=== PATIENT | female | born 1955 | race African-American/Black ===

== ENCOUNTER 2017-11-01 12:04 | Emergency (ER) | payer MEDICAID ==
[~2017-11-01] VITALS: Ht 162.6 cm; Wt 72.6 kg
[~2017-11-01 12:04] MED LIST: ACETAMINOPHEN500 M3 ORAL
[2017-11-01 12:24] VITALS: BP 186/94
[2017-11-01] MEDS ORDERED: TYLENOL EXTRA500 MG ORAL (13:27)
[2017-11-01] MEDS ORDERED: ZOFRAN4 M3 ORAL (13:27)
[2017-11-01 14:00] VITALS: BP 186/94
--- NOTE | 2017-11-03 23:02 | Emergency Room Report ---
History of Present Illness General Chief Complaint: Nausea, Vomiting, and Diarrhea Source: Patient Present Illness HPI The patient is a 61-year-old female who denies medical history presenting for 2 days of nausea, vomiting, and diarrhea. She admits to recent sick contact with the same symptoms. She denies any recent travel. She has abdominal pain described as a 5/10 dull ache to the mid upper abdomen. Does not radiate. She denies any other symptoms including chest pain, shortness of breath, melena, hematochezia, hematemesis Allergies: Coded Allergies: No Known Allergies (Unverified , 04/10/14) Patient History Past Medical History: see triage record Pertinent Family History: none Reviewed Nursing Documentation: PMH: Agreed, PSxH: Agreed Nursing Documentation-PMH Past Medical History: No History, Except For Hx Hypertension: Yes Review of Systems All Other Systems: negative except mentioned in HPI Physical Exam Vital Signs Date Time Temp Pulse Resp B/P (MAP) Pulse Ox O2 Delivery O2 Flow Rate FiO2 11/01/17 12:15 98.4 98 18 186/94 97 Room Air Sp02 EP Interpretation: reviewed, normal General Appearance: no apparent distress, alert, GCS 15, non-toxic Head: normocephalic, atraumatic Respiratory: chest non-tender, lungs clear, normal breath sounds, speaking full sentences Cardiovascular #1: regular rate, rhythm, no edema Gastrointestinal: no mass, non-distended, tenderness - epigastric Rectal: deferred Genitourinary: normal inspection, no CVA tenderness Musculoskeletal: back normal, gait/station normal, normal range of motion, non- tender, calf tenderness Neurologic: alert, oriented x3, responsive, motor strength/tone normal, sensory intact, speech normal Psychiatric: judgement/insight normal, memory normal, mood/affect normal, no suicidal/homicidal ideation Skin: normal color, no rash, warm/dry, well hydrated Medical Decision Making PA Attestation Dr. Verma is my supervising physician. Patient management was discussed with my supervising physician Diagnostic Impression: Primary Impression: Gastroenteritis ER Course The patient is a 61-year-old female who denies medical history presenting for 2 days of nausea, vomiting, and diarrhea. Differential diagnoses considered but not limited to: Gastroenteritis, GERD, gastritis, appendicitis, pancreatitis PE: Vitals WNL. NAD. Abdomen: Normal appearance. Non distended. No ecchymosis. Increased BS. + Epigastric TTP. No McBurney point tenderness. No guarding. No CVA tenderness The patient is given Tylenol and Zofran and is feeling much better. She'll be discharged home with the same. ER precautions are given Last Vital Signs Date Time Temp Pulse Resp B/P (MAP) Pulse Ox O2 Delivery O2 Flow Rate FiO2 11/01/17 14:00 98.5 18 186/94 97 Room Air 11/01/17 12:15 98 Status: improved Disposition: HOME, SELF-CARE Condition: Improved Scripts Acetaminophen* (TYLENOL EXTRA STRENGTH*) 500 Mg Tablet 500 MG ORAL Q8H Y for Prn Headache/Temp > 101, #30 TAB 0 Refills Prov: LULU BURDEN 11/01/17 Ondansetron* (ZOFRAN*) 4 Mg Tablet 4 MG ORAL Q6H Y for Nausea & Vomiting, #15 TAB Prov: LULU BURDEN 11/01/17 Referrals: [facility],REFERRING (PCP) Patient Instructions: Viral Gastroenteritis, Adult Additional Instructions: I discussed my findings with the patient. All questions and concerns have been answered. Treatment and medication compliance have been addressed. I advised the patient that they need to follow up with PMD in 3-5 days. Return to ED if symptoms worsen, new symptoms arise, or if needed for any reason. Patient verbalized understanding of discharge instructions. LULU BURDEN Nov 03, 2017 23:01
== END 2017-11-01 14:00 | disposition home or self-care (01) ==
LOC: EMR 14:00
DX: K52.9 Noninfective gastroenteritis and colitis, unspecified (principal); I10 Essential (primary) hypertension
CPT/HCPCS: 99283

== ENCOUNTER 2019-07-14 20:47 | Inpatient (IN) | payer MEDICAID ==
[~2019-07-14] VITALS: Ht 162.6 cm; Wt 66.2 kg
[~2019-07-14 20:47] MED LIST changes: +TYLENOL EXTRA500 MG ORAL; +ZOFRAN4 M3 ORAL
[2019-07-14 21:06] VITALS: BP 203/100
--- NOTE | 2019-07-14 21:21 | Emergency Room Report ---
History of Present Illness General Chief Complaint: Nausea, Vomiting, and Diarrhea Source: Patient Present Illness HPI Patient presents with 2 days of nausea vomiting and abdominal pain. She is been able to keep anything down. She feels dehydrated at this time. She was able to move her bowels today and says that the bowel movement was normal. She denies dysuria. There is no chest pain or shortness of breath. She feels weak when she is standing. She denies having this in the past. The pain is midabdomen and constant. She states is not radiating. She rates the pain 3/10. No fevers, chills, sore throat, chest pain, palpitations, shortness of breath, joint pain, rashes, depression, anxiety, visual changes, headache. Allergies: Coded Allergies: No Known Allergies (Unverified , 04/10/14) Patient History Past Medical History: see triage record Social History: Reports: smoking, drug use - See tox screen Social History Narrative From home Last Menstrual Period: na Reviewed Nursing Documentation: PMH: Agreed; PSxH: Agreed Nursing Documentation-PMH Hx Hypertension: Yes Review of Systems All Other Systems: negative except mentioned in HPI Physical Exam Vital Signs Date Time Temp Pulse Resp B/P (MAP) Pulse Ox O2 Delivery O2 Flow Rate FiO2 07/14/19 21:00 98.8 107 14 203/104 (137) 100 07/14/19 21:06 Room Air Sp02 EP Interpretation: reviewed, normal General Appearance: well appearing, no apparent distress, GCS 15 Head: normocephalic Eyes: bilateral eye normal inspection, bilateral eye PERRL, bilateral eye EOMI ENT: moist mucus membranes Neck: supple Respiratory: lungs clear, normal breath sounds Cardiovascular #1: regular rate, rhythm Cardiovascular #2: 2+ radial (R) Gastrointestinal: normal inspection, no mass, non-distended, no rebound, guarding - Diffuse, tenderness - Diffuse Genitourinary: no CVA tenderness Musculoskeletal: back normal, normal range of motion Neurologic: alert, grossly normal, oriented - X2 Psychiatric: depressed affect Skin: no rash Medical Decision Making Diagnostic Impression: Primary Impression: Abdominal pain Qualified Codes: R10.84 - Generalized abdominal pain Additional Impressions: Intractable vomiting Qualified Codes: R11.2 - Nausea with vomiting, unspecified Urinary tract infection Qualified Codes: N39.0 - Urinary tract infection, site not specified Pericholecystic fluid Cocaine abuse Dehydration Polycythemia ER Course Patient presents with nausea and vomiting with abdominal pain. Differential includes acute myocardial infarction, pancreatitis, GERD, gastroenteritis, diverticulitis, UTI amongst others. The patient will be evaluated with EKG, chest x-ray, CT the abdomen and pelvis with contrast and labs. The patient will be treated with IV hydration, Zofran and morphine. CT concerning for cholecystitis (no stones). White count elevated. Elevated hemoglobin hematocrit. CMP elevated BUN. Urinalysis with pyuria. Tox screen positive for cocaine. Patient improved but still with some guarding. Diffuse. No rebound. She declines more pain medicine. Cefepime given for UTI and/or gall bladder inflammation. Contacted Dr. Lane and Dr. Medrano. Admit med. Laboratory Tests Test 07/14/19 21:25 07/14/19 22:25 07/14/19 23:19 White Blood Count 12.0 K/UL (4.8-10.8) H Red Blood Count 5.34 M/UL (4.20-5.40) Hemoglobin 17.2 G/DL (12.0-16.0) H Hematocrit 52.4 % (37.0-47.0) H Mean Corpuscular Volume 98 FL (80-99) Mean Corpuscular Hemoglobin 32.2 PG (27.0-31.0) H Mean Corpuscular Hemoglobin Concent 32.8 G/DL (32.0-36.0) Red Cell Distribution Width 11.4 % (11.6-14.8) L Platelet Count 265 K/UL (150-450) Mean Platelet Volume 8.9 FL (6.5-10.1) Neutrophils (%) (Auto) 88.4 % (45.0-75.0) H Lymphocytes (%) (Auto) 7.4 % (20.0-45.0) L Monocytes (%) (Auto) 3.2 % (1.0-10.0) Eosinophils (%) (Auto) 0.0 % (0.0-3.0) Basophils (%) (Auto) 1.1 % (0.0-2.0) Prothrombin Time 10.2 SEC (9.30-11.50) Prothrombin Time INR 1.0 (0.9-1.1) PTT 28 SEC (23-33) Sodium Level 136 MMOL/L (136-145) Potassium Level 3.7 MMOL/L (3.5-5.1) Chloride Level 98 MMOL/L (98-107) Carbon Dioxide Level 25 MMOL/L (21-32) Anion Gap 13 mmol/L (5-15) Blood Urea Nitrogen 19 mg/dL (7-18) H Creatinine 1.0 MG/DL (0.55-1.30) Estimate Glomerular Filtration Rate > 60 mL/min (>60) Glucose Level 176 MG/DL (74-106) H Lactic Acid Level 2.10 mmol/L (0.4-2.0) H 1.70 mmol/L (0.66-2.22) Calcium Level 10.1 MG/DL (8.5-10.1) Magnesium Level 1.8 MG/DL (1.8-2.4) Total Bilirubin 0.5 MG/DL (0.2-1.0) Aspartate Amino Transferase (AST) 16 U/L (15-37) Alanine Aminotransferase (ALT) 16 U/L (12-78) Alkaline Phosphatase 85 U/L (46-116) Troponin I 0.000 ng/mL (0.000-0.056) Total Protein 8.6 G/DL (6.4-8.2) H Albumin 3.8 G/DL (3.4-5.0) Globulin 4.8 g/dL Albumin/Globulin Ratio 0.8 (1.0-2.7) L Lipase 132 U/L (73-393) Urine Color Pale yellow Urine Appearance Clear Urine pH 7 (4.5-8.0) Urine Specific [place] 1.015 (1.005-1.035) Urine Protein 3+ (NEGATIVE) H Urine Glucose (UA) 1+ (NEGATIVE) H Urine Ketones Negative (NEGATIVE) Urine Blood 2+ (NEGATIVE) H Urine Nitrite Negative (NEGATIVE) Urine Bilirubin Negative (NEGATIVE) Urine Urobilinogen Normal MG/DL (0.0-1.0) Urine Leukocyte Esterase 2+ (NEGATIVE) H Urine RBC 2-4 /HPF (0 - 2) H Urine WBC 5-10 /HPF (0 - 2) H Urine Squamous Epithelial Cells Moderate /LPF (NONE/OCC) H Urine Bacteria Few /HPF (NONE) EKG Diagnostic Results Rate: tachycardiac Rhythm: NSR ST Segments: no acute changes Rhythm Strip Diag. Results EP Interpretation: yes Rhythm: no PVC's, no ectopy, other - Sinus tachycardia Chest X-Ray Diagnostic Results Chest X-Ray Diagnostic Results : Chest X-Ray Ordered: Yes # of Views/Limited/Complete: 1 View Indication: Other EP Interpretation: Yes Interpretation: no consolidation, no effusion, no pneumothorax Impression: No acute disease Electronically Signed by: Electronic CT/MRI/US Diagnostic Results CT/MRI/US Diagnostic Results : Imaging Test Ordered: Abdomen and pelvis Impression Gallbladder demonstrates wall thickening with isaias-cholecystic fluid. No stones. This was also seen April 102013. The rest unremarkable. Last Vital Signs Date Time Temp Pulse Resp B/P (MAP) Pulse Ox O2 Delivery O2 Flow Rate FiO2 07/15/19 04:00 97.5 70 20 212/91 (131) 97 07/15/19 02:11 Room Air Status: improved Disposition: ADMITTED INPATIENT Condition: Serious Brody Luciano MD Jul 14, 2019 21:21
[2019-07-14] MEDS ORDERED: Omnipaque-300 100ml vial INJ PRN (21:30)
[2019-07-14] MEDS ORDERED: Morphine Sulfate 2mg/ml Inj(IV/IM USE ONLY) IVP ONE (21:30)
[2019-07-14 21:48] LABS: HEMATOCRIT 52.4 % (37.0-47.0); HEMOGLOBIN 17.2 G/DL (12.0-16.0); MEAN CORPUSCULAR VOLUME 98 FL (80-99); PLATELET COUNT 265 K/UL (150-450); RED BLOOD COUNT 5.34 M/UL (4.20-5.40); RED CELL DISTRIBUTION WIDTH 11.4 % (11.6-14.8)
[2019-07-14 21:49] LABS: LYMPHOCYTES % (AUTO) 7.4 % (20.0-45.0); MONOCYTES % (AUTO) 3.2 % (1.0-10.0); NEUTROPHILS % (AUTO) 88.4 % (45.0-75.0)
[2019-07-14 21:50] LABS: BASOPHILS % (AUTO) 1.1 % (0.0-2.0)
[2019-07-14 21:56] LABS: ANION GAP 13 mmol/L (5-15); BLOOD UREA NITROGEN 19 mg/dL (7-18); CALCIUM 10.1 MG/DL (8.5-10.1); CARBON DIOXIDE 25 MMOL/L (21-32); CHLORIDE 98 MMOL/L (98-107); POTASSIUM 3.7 MMOL/L (3.5-5.1); SODIUM 136 MMOL/L (136-145)
[2019-07-14 22:01] LABS: ALANINE AMINOTRANSFERASE 16 U/L (12-78); ALBUMIN 3.8 G/DL (3.4-5.0); ALBUMIN/GLOBULIN RATIO 0.8 (1.0-2.7); ALKALINE PHOSPHATASE 85 U/L (46-116); ASPARTATE AMINO TRANSFERASE 16 U/L (15-37); BILIRUBIN,TOTAL 0.5 MG/DL (0.2-1.0)
--- NOTE | 2019-07-14 23:28 | Diagnostic Imaging Report ---
Indication: Abdominal pain Technique: Continuous helical transaxial imaging of the abdomen and pelvis was obtained from the lung bases to the pubic symphysis during intravenous contrast administration. Coronal 2-D reformats were also obtained. Study obtained in a Siemens sensation [address] Automatic Exposure Control was utilized. Total Dose length Product (DLP): 527.[address] Dose Index Volume (CTDIvol): 10.45 mGy Comparison: 04/10/2014 Findings: There is a lipoma in the posterolateral right flank measuring 4.2 x 8.2 cm. This has not changed subsequently since the last study. There is gallbladder wall thickening noted on this exam. This was also seen previously. There are bilateral renal cysts. There is no hydronephrosis. Aortoiliac calcifications are present. No evidence of appendicitis, free fluid, bowel obstruction. There are enhancing foci within the uterus likely fibroids. Degenerative changes of the lower lumbar spine are noted with vacuum phenomenon and osteophytes. The lung bases are showing a few cystic lesions which may be small pneumatoceles. There is mild posterior basal atelectasis. Hiatal hernia noted. IMPRESSION: Gallbladder wall thickening nonspecific. Subcutaneous lipoma in the right posterolateral abdominal wall. Degenerative changes of the spine. This may be further evaluated with MRI. Other incidentals as above [facility] has communicated the preliminary results to the Emergency Department. Their findings are largely concordant with this report. The CT scanner at [facility] is accredited by the [employer] and the scans are performed using dose optimization techniques as appropriate to a performed exam including Automatic Exposure control.
[2019-07-14 23:35] LABS: APPEARANCE,URINE CLEAR; BILIRUBIN, URINE NEGATIVE (NEGATIVE); COLOR,URINE PALE YELLOW; GLUCOSE, URINE (UA) 1+ (NEGATIVE); KETONES,URINE NEGATIVE (NEGATIVE); LEUKOCYTE ESTERASE ,URINE 2+ (NEGATIVE); NITRITE,URINE NEGATIVE (NEGATIVE); PH,URINE 7 (4.5-8.0); PROTEIN,URINE 3+ (NEGATIVE); UROBILINOGEN,URINE NORMAL MG/DL (0.0-1.0)
[2019-07-14 23:55] VITALS: BP 169/98
[2019-07-15] VITALS (8 sets, daily range): BP systolic 160–212; BP diastolic 85–108
[2019-07-15] MEDS ORDERED: Cefepime HCl 1 GM in D5W 55 ML IVPB ONE ×2
[2019-07-15] MEDS ORDERED: Morphine Sulfate 2mg/ml Inj(IV/IM USE ONLY) IVP PRN ×2 (00:30→10:33)
[2019-07-15] MEDS ORDERED: HydrALAZINE 25mg tab ORAL PRN ×2 (01:45→10:33)
[2019-07-15] MEDS ORDERED: Metoprolol 25mg tab ORAL SCH (01:45)
[2019-07-15] MEDS ORDERED: HydrALAZINE 50mg tab ORAL SCH ×2 (06:57→12:00)
[2019-07-15] MEDS ORDERED: Carvedilol 12.5mg tab ORAL SCH ×2 (09:00→21:00)
[2019-07-15] MEDS ORDERED: Enoxaparin 40mg Inj SUBQ SCH (09:00)
--- NOTE | 2019-07-15 09:01 | History and Physical Report ---
DATE OF ADMISSION: 07/14/2019 REASON FOR ADMISSION: 1. Nausea, vomiting, abdominal pain. 2. Hypertension. HISTORY OF PRESENT ILLNESS: The patient is a 64-year-old female, who presented overnight and was admitted for nausea, vomiting, abdominal pain, with elevated blood pressure. The patient was positive for cocaine. The patient continues to deny ever using cocaine. Then admitted to using cocaine, but is not sure how often or when her last time using cocaine was. She is resting comfortably. She states that she is unclear of ever having high blood pressure in the past. ALLERGIES: No known drug allergies. SOCIAL HISTORY: Positive for illicit drug use. No alcohol or tobacco. FAMILY HISTORY: Positive for hypertension. PAST SURGICAL HISTORY: Noncontributory. REVIEW OF SYSTEMS: NEUROLOGIC: The patient denies headache, change in vision, syncope, or presyncopal episodes. CARDIOVASCULAR: No current chest pain, palpitations, or angina. PULMONARY: No difficulty breathing, productive cough, or sputum. GASTROINTESTINAL/GENITOURINARY: Complaining of nausea, vomiting, and abdominal pain. ENDOCRINOLOGY: No night sweats, fevers, or chills. MUSCULOSKELETAL: The patient feeling weak, tired, and fatigued. LABORATORY DATA: Laboratories dated July 15, 2019. Positive for cocaine. Sodium 136, potassium 3.7, creatinine 1. White cell count 12, hemoglobin 17.2, and platelet count 265. PHYSICAL EXAMINATION: VITAL SIGNS: Blood pressure 202/94, respiratory rate 20, pulse 70, temperature 97.5, and 97% saturation on room air. GENERAL: The patient is awake, alert, not otherwise in distress. HEENT: Extraocular muscles intact. No lymphadenopathy noted. CARDIOVASCULAR: S1, S2. No rubs or gallops. PULMONARY: Clear to auscultation bilaterally. No rales, rhonchi or wheezes. ABDOMEN: Nondistended and nontender. EXTREMITIES: No edema noted. ASSESSMENT/PLAN: 1. Abdominal pain. Could be secondary to heavy cocaine abuse. We will defer management to Gastroenterology and we will continue IV fluids. 2. Hypertension secondary to cocaine abuse. We will transfer the patient to telemetry and adjust blood pressure medications carefully. 3. GI prophylaxis, famotidine. 4. DVT prophylaxis with Lovenox. Caleb Whitt MD DR: SAIRA JOB#: [id number] CC:
--- NOTE | 2019-07-15 11:18 | Diagnostic Imaging Report ---
Indication: Chest and abdominal pain Comparison: None A single view chest radiograph was obtained. Findings: The left hemidiaphragm is elevated. The heart is normal in size. There is hyperlucency of the lung apices especially on the right side. Bones may be slightly osteopenic. The aorta is mildly calcified. IMPRESSION: Upper lobe emphysema right worse than left. Elevated left hemidiaphragm. Osteopenia
[2019-07-15] MEDS: HydrALAZINE 50mg tab ORAL SCH ×2 (12:44→18:33)
--- NOTE | 2019-07-15 15:25 | Consultation ---
History of Present Illness General Reason for Hospitalization: Nausea, Vomiting, and Diarrhea Present Illness HPI 63F patient presents with 2 days of nausea vomiting and abdominal pain. She is been able to keep anything down. She feels dehydrated at this time. She was able to move her bowels today and says that the bowel movement was normal. She denies dysuria. There is no chest pain or shortness of breath. She feels weak when she is standing. She denies having this in the past. The pain is midabdomen and constant. She states is not radiating. She rates the pain 3/ 10. No fevers, chills, sore throat, chest pain, palpitations, shortness of breath, joint pain, rashes, depression, anxiety, visual changes, headache. leukocytosis. CT noted. surgery called to evaluate. patient seen, chart reviewed, patient examined. currently no pain. improved Allergies: Coded Allergies: No Known Allergies (Unverified , 04/10/14) Medication History Scheduled PRN Acetaminophen* (Acetaminophen Extra Strength*), 500 MG ORAL Q8H PRN for Fever/ Headache/Mild Pain Acetaminophen* (Tylenol Extra Strength*), 500 MG ORAL Q8H PRN for Prn Headache/ Temp > 101 Ondansetron* (Zofran*), 4 MG ORAL Q6H PRN for Nausea & Vomiting Patient History History Provided By: Patient, Medical Record, PMD Healthcare decision maker Resuscitation status Full Code Advanced Directive on File Past Medical/Surgical History Past Medical/Surgical History: (1) Gastroenteritis (2) Dehydration (3) Polycythemia (4) Cocaine abuse (5) Urinary tract infection (6) Intractable vomiting (7) Abdominal pain Review of Systems Review of Symptoms General ROS: no weight loss or fever Psychological ROS: no depression or mood changes, no memory loss Ophthalmic ROS: no visual changes or eye irritation ENT ROS: no nasal congestion, hearing loss, dizziness Allergy and Immunology ROS: no allergic symptoms or urticaria Hematological and Lymphatic ROS: no swollen glands, unusual bleeding or bruising Endocrine ROS: no polyuria, polydipsia, weight changes, temperature intolerance Respiratory ROS: no cough, shortness of breath, or wheezing Cardiovascular ROS: no chest pain or dyspnea on exertion Gastrointestinal ROS: denies abdominal pain,no bright red blood in stool. Musculoskeletal ROS: no myalgias or arthralgias Neurological ROS: no TIA or stroke symptoms Dermatological ROS: no new or changing skin lesions, rashes or pruritis Physical Exam Physical Exam General appearance: alert, cooperative, no distress, appears stated age Head: Normocephalic, without obvious abnormality, atraumatic Eyes: conjunctivae/corneas clear. PERRL, EOM's intact. Fundi benign Throat: Lips, mucosa, and tongue normal. Teeth and gums normal Neck: supple, symmetrical, trachea midline, no adenopathy, thyroid: not enlarged, symmetric, no tenderness/mass/nodules, no carotid bruit and no JVD Lungs: clear to auscultation bilaterally Heart: regular rate and rhythm, S1, S2 normal, no murmur, click, rub or gallop Abdomen: soft, non-tender. Bowel sounds normal. No masses, no organomegaly Extremities: extremities normal, atraumatic, no cyanosis or edema Pulses: 2+ and symmetric Skin: Skin color, texture, turgor normal. No rashes or lesions Neurologic: Grossly normal Last 24 Hour Vital Signs Date Time Temp Pulse Resp B/P (MAP) Pulse Ox O2 Delivery O2 Flow Rate FiO2 07/15/19 12:44 160/95 07/15/19 12:00 98.2 81 18 160/95 (116) 07/15/19 10:58 170/85 07/15/19 10:44 97.3 78 20 170/85 (113) 96 07/15/19 09:00 Room Air 07/15/19 08:23 70 202/94 07/15/19 08:00 97.1 76 20 193/99 (130) 99 07/15/19 07:00 202/94 07/15/19 04:00 97.5 70 20 212/91 (131) 97 07/15/19 02:11 Room Air 07/15/19 01:55 95 202/100 07/15/19 01:54 202/100 07/15/19 01:34 99.0 95 19 202/100 (134) 96 07/15/19 01:00 98.8 88 15 203/100 100 Room Air 07/14/19 23:55 98.2 90 16 169/98 99 Room Air 07/14/19 22:01 98.8 07/14/19 21:06 98.8 88 15 203/100 100 Room Air 9/16/19 21:00 98.8 107 14 203/104 (137) 100 Intake and Output 07/14/19 07/15/19 19:00 07:00 # Voids 4 Laboratory Tests Test 07/14/19 21:25 07/14/19 22:25 07/14/19 23:19 White Blood Count 12.0 K/UL (4.8-10.8) H Red Blood Count 5.34 M/UL (4.20-5.40) Hemoglobin 17.2 G/DL (12.0-16.0) H Hematocrit 52.4 % (37.0-47.0) H Mean Corpuscular Volume 98 FL (80-99) Mean Corpuscular Hemoglobin 32.2 PG (27.0-31.0) H Mean Corpuscular Hemoglobin Concent 32.8 G/DL (32.0-36.0) Red Cell Distribution Width 11.4 % (11.6-14.8) L Platelet Count 265 K/UL (150-450) Mean Platelet Volume 8.9 FL (6.5-10.1) Neutrophils (%) (Auto) 88.4 % (45.0-75.0) H Lymphocytes (%) (Auto) 7.4 % (20.0-45.0) L Monocytes (%) (Auto) 3.2 % (1.0-10.0) Eosinophils (%) (Auto) 0.0 % (0.0-3.0) Basophils (%) (Auto) 1.1 % (0.0-2.0) Prothrombin Time 10.2 SEC (9.30-11.50) Prothromb Time International Ratio 1.0 (0.9-1.1) Activated Partial Thromboplast Time 28 SEC (23-33) Sodium Level 136 MMOL/L (136-145) Potassium Level 3.7 MMOL/L (3.5-5.1) Chloride Level 98 MMOL/L (98-107) Carbon Dioxide Level 25 MMOL/L (21-32) Anion Gap 13 mmol/L (5-15) Blood Urea Nitrogen 19 mg/dL (7-18) H Creatinine 1.0 MG/DL (0.55-1.30) Estimat Glomerular Filtration Rate > 60 mL/min (>60) Glucose Level 176 MG/DL (74-106) H Lactic Acid Level 2.10 mmol/L (0.4-2.0) H 1.70 mmol/L (0.66-2.22) Calcium Level 10.1 MG/DL (8.5-10.1) Magnesium Level 1.8 MG/DL (1.8-2.4) Total Bilirubin 0.5 MG/DL (0.2-1.0) Aspartate Amino Transf (AST/SGOT) 16 U/L (15-37) Alanine Aminotransferase (ALT/SGPT) 16 U/L (12-78) Alkaline Phosphatase 85 U/L (46-116) Troponin I 0.000 ng/mL (0.000-0.056) Total Protein 8.6 G/DL (6.4-8.2) H Albumin 3.8 G/DL (3.4-5.0) Globulin 4.8 g/dL Albumin/Globulin Ratio 0.8 (1.0-2.7) L Lipase 132 U/L (73-393) Urine Color Pale yellow Urine Appearance Clear Urine pH 7 (4.5-8.0) Urine Specific [place] 1.015 (1.005-1.035) Urine Protein 3+ (NEGATIVE) H Urine Glucose (UA) 1+ (NEGATIVE) H Urine Ketones Negative (NEGATIVE) Urine Blood 2+ (NEGATIVE) H Urine Nitrite Negative (NEGATIVE) Urine Bilirubin Negative (NEGATIVE) Urine Urobilinogen Normal MG/DL (0.0-1.0) Urine Leukocyte Esterase 2+ (NEGATIVE) H Urine RBC 2-4 /HPF (0 - 2) H Urine WBC 5-10 /HPF (0 - 2) H Urine Squamous Epithelial Cells Moderate /LPF (NONE/OCC) H Urine Bacteria Few /HPF (NONE) Urine Opiates Screen Negative (NEGATIVE) Urine Barbiturates Screen Negative (NEGATIVE) Phencyclidine (PCP) Screen Negative (NEGATIVE) Urine Amphetamines Screen Negative (NEGATIVE) Urine Benzodiazepines Screen Negative (NEGATIVE) Urine Cocaine Screen Positive (NEGATIVE) H Urine Marijuana (THC) Screen Negative (NEGATIVE) Height (Feet): 5 Height (Inches): 4.00 Weight (Pounds): 160 Medications Current Medications Medications (Trade) Dose Ordered Sig/Laith Route PRN Reason Start Time Stop Time Status Last Admin Dose Admin Acetaminophen (Tylenol) 650 mg Q4H PRN ORAL Mild Pain (Pain Scale 1-3) 07/15/19 10:32 08/14/19 10:31 Barium Sulfate (Readi-Cat 2) 450 ml NOW PRN ORAL Radiology Procedure 07/15/19 21:30 07/16/19 21:17 Carvedilol (Coreg) 25 mg EVERY 12 HOURS ORAL 07/15/19 21:00 08/14/19 08:59 Dextrose (Dextrose 50%) 25 ml Q30M PRN IV Hypoglycemia 07/15/19 10:30 08/14/19 00:29 Dextrose (Dextrose 50%) 50 ml Q30M PRN IV Hypoglycemia 07/15/19 10:30 08/14/19 00:29 Enoxaparin Sodium (Lovenox) 40 mg DAILY SUBQ 07/16/19 09:00 08/14/19 08:59 Famotidine (Pepcid) 40 mg DAILY ORAL 07/16/19 09:00 08/14/19 08:59 Hydralazine HCl (Apresoline) 25 mg Q6H PRN ORAL For High Blood Pressure 07/15/19 10:33 08/14/19 10:32 07/15/19 10:58 Hydralazine HCl (Apresoline) 50 mg Q6HR ORAL 07/15/19 12:00 08/14/19 11:59 07/15/19 12:44 Iohexol (OMNIPAQUE-300 100ml) 100 ml NOW PRN INJ Radiology Procedure 07/15/19 21:30 07/16/19 21:17 Labetalol HCl (Normodyne) 10 mg Q6H PRN IV For High Blood Pressure 07/15/19 14:45 08/14/19 14:44 Morphine Sulfate (Morphine Sulfate) 1 mg Q3H PRN IVP For Pain 07/15/19 10:33 07/22/19 10:32 Ondansetron HCl (Zofran) 4 mg Q6H PRN IVP Nausea & Vomiting 07/15/19 10:33 08/14/19 10:32 Assessment/Plan Problem List: (1) Dehydration ICD Codes: E86.0 - Dehydration SNOMED: 45733093 (2) Polycythemia ICD Codes: D75.1 - Secondary polycythemia SNOMED: 442971658 (3) Cocaine abuse ICD Codes: F14.10 - Cocaine abuse, uncomplicated SNOMED: 64115414 (4) Urinary tract infection ICD Codes: N39.0 - Urinary tract infection, site not specified SNOMED: 80049326 Qualifiers: Qualified Codes: N39.0 - Urinary tract infection, site not specified (5) Intractable vomiting ICD Codes: R11.10 - Vomiting, unspecified SNOMED: 969981072 Qualifiers: Qualified Codes: R11.2 - Nausea with vomiting, unspecified (6) Abdominal pain Assessment & Plan: CT with Findings: There is a lipoma in the posterolateral right flank measuring 4.2 x 8.2 cm. This has not changed subsequently since the last study. There is gallbladder wall thickening noted on this exam. This was also seen previously. There are bilateral renal cysts. There is no hydronephrosis. Aortoiliac calcifications are present. No evidence of appendicitis, free fluid, bowel obstruction. There are enhancing foci within the uterus likely fibroids. Degenerative changes of the lower lumbar spine are noted with vacuum phenomenon and osteophytes. The lung bases are showing a few cystic lesions which may be small pneumatoceles. There is mild posterior basal atelectasis. Hiatal hernia noted IMPRESSION: Gallbladder wall thickening nonspecific. Subcutaneous lipoma in the right posterolateral abdominal wall. pain resolved no n/v/f/c currently labs noted okay for diet no acute surgical interventio planned will follow with recs thank you ICD Codes: R10.9 - Unspecified abdominal pain SNOMED: 21055618 Qualifiers: Qualified Codes: R10.84 - Generalized abdominal pain (7) Gastroenteritis ICD Codes: K52.9 - Noninfective gastroenteritis and colitis, unspecified SNOMED: 10607517 Adolfo Medrano Jul 15, 2019 15:25
[2019-07-15] MEDS: Labetalol 5mg/ml 20ml vial IV PRN (17:28)
--- NOTE | 2019-07-15 18:10 | Cardiology Report ---
APPROVED REPORT EKG Measurement Heart [id number] ID [id number] Sinus tachycardia Possible Left atrial enlargement Nonspecific ST and T wave abnormality Abnormal ECG
[2019-07-15] MEDS: Carvedilol 25mg Tab ORAL SCH (20:38)
[2019-07-15] MEDS ORDERED: Omnipaque-300 100ml vial INJ PRN (21:30)
[2019-07-16] VITALS: BP 132/71
[2019-07-16] MEDS: HydrALAZINE 50mg tab ORAL SCH ×4 (00:09→21:59)
[2019-07-16 04:00] VITALS: BP 146/80
--- NOTE | 2019-07-16 05:57 | General Progress Note ---
Assessment/Plan Assessment/Plan: GI CONSULT Dictated Acute N/V/D with mild leukocytosis, ? viral gastroenteritis Patient feeling better today. Observe and advance diet Further w/u if Sx persist. Thank you Mikayla Espino MD Subjective Allergies: Coded Allergies: No Known Allergies (Unverified , 04/10/14) Objective Last 24 Hour Vital Signs Date Time Temp Pulse Resp B/P (MAP) Pulse Ox O2 Delivery O2 Flow Rate FiO2 07/16/19 05:01 146/80 07/16/19 04:00 75 07/16/19 04:00 96.9 91 18 146/80 (102) 96 07/16/19 00:09 132/71 07/16/19 00:00 98.1 80 18 132/71 (91) 97 07/16/19 00:00 83 07/15/19 21:00 Room Air 07/15/19 20:38 93 174/97 07/15/19 20:00 93 07/15/19 20:00 99.2 93 18 174/97 (122) 97 07/15/19 18:33 164/108 07/15/19 18:27 96.9 77 18 164/108 (126) 98 07/15/19 17:28 97 168/105 07/15/19 16:00 96.7 97 17 168/105 (126) 98 07/15/19 15:35 93 07/15/19 12:44 160/95 07/15/19 12:00 98.2 81 18 160/95 (116) 07/15/19 11:59 72 07/15/19 10:58 170/85 07/15/19 10:44 97.3 78 20 170/85 (113) 96 07/15/19 10:31 75 07/15/19 09:00 Room Air 07/15/19 08:23 70 202/94 07/15/19 08:00 97.1 76 20 193/99 (130) 99 07/15/19 07:00 202/94 Intake and Output 07/15/19 07/16/19 19:00 07:00 Intake Total 120 ml Balance 120 ml Intake Oral 120 ml # Voids 2 Height (Feet): 5 Height (Inches): 4.00 Weight (Pounds): 160 Mikayla Espino MD Jul 16, 2019 05:57
[2019-07-16 06:56] LABS: EOSINOPHILS % (AUTO) 0.1 % (0.0-3.0); HEMATOCRIT 52.9 % (37.0-47.0); HEMOGLOBIN 17.8 G/DL (12.0-16.0); LYMPHOCYTES % (AUTO) 10.7 % (20.0-45.0); MEAN CORPUSCULAR VOLUME 94 FL (80-99); MONOCYTES % (AUTO) 5.7 % (1.0-10.0); NEUTROPHILS % (AUTO) 82.5 % (45.0-75.0); PLATELET COUNT 301 K/UL (150-450); RED BLOOD COUNT 5.63 M/UL (4.20-5.40); RED CELL DISTRIBUTION WIDTH 11.4 % (11.6-14.8); WHITE BLOOD COUNT 13.4 K/UL (4.8-10.8)
[2019-07-16 07:33] LABS: ANION GAP 8 mmol/L (5-15); BLOOD UREA NITROGEN 21 mg/dL (7-18); CALCIUM 9.6 MG/DL (8.5-10.1); CARBON DIOXIDE 26 MMOL/L (21-32); CHLORIDE 97 MMOL/L (98-107); CREATININE 0.8 MG/DL (0.55-1.30); POTASSIUM 3.8 MMOL/L (3.5-5.1); SODIUM 131 MMOL/L (136-145)
[2019-07-16 08:00] VITALS: BP 173/85
[2019-07-16] MEDS: Carvedilol 25mg Tab ORAL SCH ×2 (09:18→21:58)
[2019-07-16] MEDS: Enoxaparin 40mg Inj SUBQ SCH (09:20)
--- NOTE | 2019-07-16 09:43 | Nephrology Progress Note ---
Assessment/Plan Assessment/Plan: A/P 1. Abdominal pain. secondary to heavy cocaine abuse. resolved DC today if cleared by GI and Gen Surgery 2. Hypertension secondary to cocaine abuse. Improved DC on Coreg/hydralzaine and Norvasc 3. GI prophylaxis, famotidine. 4. DVT prophylaxis with Lovenox. Subjective Date patient seen: Jul 16, 2019 Time patient seen: 09:40 ROS Limited/Unobtainable: No Allergies: Coded Allergies: No Known Allergies (Unverified , 04/10/14) Subjective Patient feeling better. N/V and D resolved Objective Last 24 Hour Vital Signs Date Time Temp Pulse Resp B/P (MAP) Pulse Ox O2 Delivery O2 Flow Rate FiO2 07/16/19 09:18 78 173/85 07/16/19 08:00 99.0 78 21 173/85 (114) 98 07/16/19 05:01 146/80 07/16/19 04:00 75 07/16/19 04:00 96.9 91 18 146/80 (102) 96 07/16/19 00:09 132/71 07/16/19 00:00 98.1 80 18 132/71 (91) 97 07/16/19 00:00 83 07/15/19 21:00 Room Air 07/15/19 20:38 93 174/97 07/15/19 20:00 93 07/15/19 20:00 99.2 93 18 174/97 (122) 97 07/15/19 18:33 164/108 07/15/19 18:27 96.9 77 18 164/108 (126) 98 07/15/19 17:28 97 168/105 07/15/19 16:00 96.7 97 17 168/105 (126) 98 07/15/19 15:35 93 07/15/19 12:44 160/95 07/15/19 12:00 98.2 81 18 160/95 (116) 07/15/19 11:59 72 07/15/19 10:58 170/85 07/15/19 10:44 97.3 78 20 170/85 (113) 96 07/15/19 10:31 75 Intake and Output 07/15/19 07/16/19 19:00 07:00 Intake Total 120 ml Balance 120 ml Intake Oral 120 ml # Voids 2 2 Laboratory Tests 07/16/19 06:07: White Blood Count 13.4H, Red Blood Count 5.63H, Hemoglobin 17.8H, Hematocrit 52.9H, Mean Corpuscular Volume 94, Mean Corpuscular Hemoglobin 31.6H, Mean Corpuscular Hemoglobin Concent 33.6, Red Cell Distribution Width 11.4L, Platelet Count 301, Mean Platelet Volume 9.2, Neutrophils (%) (Auto) 82.5H, Lymphocytes (%) (Auto) 10.7L, Monocytes (%) (Auto) 5.7, Eosinophils (%) (Auto) 0.1, Basophils (%) (Auto) 1.0, Sodium Level 131L, Potassium Level 3.8, Chloride Level 97L, Carbon Dioxide Level 26, Anion Gap 8, Blood Urea Nitrogen 21H, Creatinine 0.8, Estimat Glomerular Filtration Rate > 60, Glucose Level 114H, Calcium Level 9.6 Height (Feet): 5 Height (Inches): 4.00 Weight (Pounds): 146 General Appearance: no apparent distress, alert EENT: normal ENT inspection Neck: normal alignment, supple Cardiovascular: normal rate, regular rhythm Respiratory/Chest: lungs clear, normal breath sounds Abdomen: non tender, soft Edema: no edema noted Arm (L), no edema noted Arm (R), no edema noted Leg (L), no edema noted Leg (R), no edema noted Pedal (L), no edema noted Pedal (R), no edema noted Generalized Caleb Whitt MD Jul 16, 2019 09:43
--- NOTE | 2019-07-16 09:45 | Discharge Instructions ---
Discharge Instructions Discharge Instructions Services at Discharge: day care Diet: 2 GM sodium (low sodium) Resume Normal Activity?: Yes Activity: light activity Follow Up Orders Avoid use of Cocaine Follow up PCP 1 week For Congestive Heart Failure Reminder Report to your physician any weight gain of 5 pounds or more in one week. Caleb Whitt MD Jul 16, 2019 09:45
[2019-07-16 12:00] VITALS: BP 159/85
--- NOTE | 2019-07-16 13:57 | Surgery Progress Note ---
Surgery Progress Note Subjective Symptoms: improved, pain absent, passing flatus Additional Comments leukocytosis exam stable no comlaints lactic improved Objective Last 24 Hour Vital Signs Date Time Temp Pulse Resp B/P (MAP) Pulse Ox O2 Delivery O2 Flow Rate FiO2 07/16/19 13:21 159/85 07/16/19 12:00 98.1 79 20 159/85 (109) 98 07/16/19 09:18 78 173/85 07/16/19 09:00 Room Air 07/16/19 08:00 99.0 78 21 173/85 (114) 98 07/16/19 08:00 75 07/16/19 05:01 146/80 07/16/19 04:00 75 07/16/19 04:00 96.9 91 18 146/80 (102) 96 07/16/19 00:09 132/71 07/16/19 00:00 98.1 80 18 132/71 (91) 97 07/16/19 00:00 83 07/15/19 21:00 Room Air 07/15/19 20:38 93 174/97 07/15/19 20:00 93 07/15/19 20:00 99.2 93 18 174/97 (122) 97 07/15/19 18:33 164/108 07/15/19 18:27 96.9 77 18 164/108 (126) 98 07/15/19 17:28 97 168/105 07/15/19 16:00 96.7 97 17 168/105 (126) 98 07/15/19 15:35 93 I&O Intake and Output 07/15/19 07/16/19 19:00 07:00 Intake Total 120 ml Balance 120 ml Intake Oral 120 ml # Voids 2 2 Cardiovascular: RSR Respiratory: clear Abdomen: soft, flat, non-tender, present bowel sounds, non-distended Extremities: no tenderness, no cyanosis, other Laboratory Tests Test 07/16/19 06:07 White Blood Count 13.4 K/UL (4.8-10.8) H Red Blood Count 5.63 M/UL (4.20-5.40) H Hemoglobin 17.8 G/DL (12.0-16.0) H Hematocrit 52.9 % (37.0-47.0) H Mean Corpuscular Volume 94 FL (80-99) Mean Corpuscular Hemoglobin 31.6 PG (27.0-31.0) H Mean Corpuscular Hemoglobin Concent 33.6 G/DL (32.0-36.0) Red Cell Distribution Width 11.4 % (11.6-14.8) L Platelet Count 301 K/UL (150-450) Mean Platelet Volume 9.2 FL (6.5-10.1) Neutrophils (%) (Auto) 82.5 % (45.0-75.0) H Lymphocytes (%) (Auto) 10.7 % (20.0-45.0) L Monocytes (%) (Auto) 5.7 % (1.0-10.0) Eosinophils (%) (Auto) 0.1 % (0.0-3.0) Basophils (%) (Auto) 1.0 % (0.0-2.0) Sodium Level 131 MMOL/L (136-145) L Potassium Level 3.8 MMOL/L (3.5-5.1) Chloride Level 97 MMOL/L (98-107) L Carbon Dioxide Level 26 MMOL/L (21-32) Anion Gap 8 mmol/L (5-15) Blood Urea Nitrogen 21 mg/dL (7-18) H Creatinine 0.8 MG/DL (0.55-1.30) Estimat Glomerular Filtration Rate > 60 mL/min (>60) Glucose Level 114 MG/DL (74-106) H Calcium Level 9.6 MG/DL (8.5-10.1) Plan Problems: (1) Dehydration (2) Polycythemia (3) Cocaine abuse (4) Urinary tract infection (5) Intractable vomiting (6) Abdominal pain Assessment & Plan: CT with Findings: There is a lipoma in the posterolateral right flank measuring 4.2 x 8.2 cm. This has not changed subsequently since the last study. There is gallbladder wall thickening noted on this exam. This was also seen previously. There are bilateral renal cysts. There is no hydronephrosis. Aortoiliac calcifications are present. No evidence of appendicitis, free fluid, bowel obstruction. There are enhancing foci within the uterus likely fibroids. Degenerative changes of the lower lumbar spine are noted with vacuum phenomenon and osteophytes. The lung bases are showing a few cystic lesions which may be small pneumatoceles. There is mild posterior basal atelectasis. Hiatal hernia noted IMPRESSION: Gallbladder wall thickening nonspecific. Subcutaneous lipoma in the right posterolateral abdominal wall. pain resolved no n/v/f/c currently labs noted okay for diet no acute surgical intervention planned trend labs will follow with recs thank you (7) Gastroenteritis Adolfo Medrano Jul 16, 2019 13:57
[2019-07-16] MEDS: Labetalol 5mg/ml 20ml vial IV PRN (15:34)
[2019-07-16 16:00] VITALS: BP 168/83
--- NOTE | 2019-07-16 18:00 | Consultation ---
DATE OF CONSULTATION: 07/16/2019 GASTROENTEROLOGY CONSULTATION CONSULTING PHYSICIAN: Mikayla Espino M.D. CHIEF COMPLAINT: I was asked to see this patient by Dr. Caleb Whitt, for evaluation of gastrointestinal symptoms. HISTORY OF PRESENT ILLNESS: The patient is a 63-year-old woman who came in with 1 to 2-day history of nausea, vomiting, and diffuse abdominal pain. In the emergency room, she was found to have elevated blood pressure and she had cocaine positive screen. She states that she had cocaine over the last week, but her history is somewhat questionable and vague. She denies any hematochezia and is unsure if she has ever had an endoscopy or colonoscopy. She feels better today. She states that her nausea and vomiting have resolved. PAST MEDICAL HISTORY: History of hypertension. FAMILY HISTORY: Noncontributory. SOCIAL HISTORY: The patient is single and used cocaine. She does not drink or smoke. REVIEW OF SYSTEMS: Otherwise negative. PHYSICAL EXAMINATION: GENERAL: A well-developed and well-nourished woman, in no distress. HEENT: Normocephalic and atraumatic. Sclerae anicteric. Oropharynx clear. NECK: Supple. CHEST: Clear to auscultation. CARDIOVASCULAR: Revealed a regular rate. ABDOMEN: Soft with good bowel sounds. There is no tenderness. EXTREMITIES: Revealed no edema. LABORATORY DATA: Noted. ASSESSMENT: This patient presents with acute nausea, vomiting, diarrhea, and mild leukocytosis, all of which are consistent with course of viral gastroenteritis. She already feels better today and is likely that her symptoms her symptoms are declining. her diet should be advanced condition can meet discharge once stable. If her symptoms persist or return endoscopy and imaging study or antibiotic treatment will be necessary at this time. RECOMMENDATIONS: Per above discussion and per orders in the chart. Thank you for asking me to participate in the care of this patient. Mikayla Espino M.D. DR: JENNIFER JOB#: [id number] CC: [place]
[2019-07-16 20:00] VITALS: BP 174/85
[2019-07-17] VITALS: BP 159/81
[2019-07-17 04:00] VITALS: BP 149/75
[2019-07-17] MEDS: HydrALAZINE 50mg tab ORAL SCH (05:44)
[2019-07-17 06:55] LABS: BASOPHILS % (AUTO) 1.6 % (0.0-2.0); EOSINOPHILS % (AUTO) 0.3 % (0.0-3.0); HEMATOCRIT 51.6 % (37.0-47.0); HEMOGLOBIN 17.2 G/DL (12.0-16.0); LYMPHOCYTES % (AUTO) 18.7 % (20.0-45.0); MEAN CORPUSCULAR VOLUME 95 FL (80-99); MONOCYTES % (AUTO) 8.9 % (1.0-10.0); NEUTROPHILS % (AUTO) 70.5 % (45.0-75.0); PLATELET COUNT 268 K/UL (150-450); RED BLOOD COUNT 5.45 M/UL (4.20-5.40); RED CELL DISTRIBUTION WIDTH 11.6 % (11.6-14.8); WHITE BLOOD COUNT 7.9 K/UL (4.8-10.8)
[2019-07-17 07:25] LABS: ALANINE AMINOTRANSFERASE 14 U/L (12-78); ALBUMIN 3.1 G/DL (3.4-5.0); ALBUMIN/GLOBULIN RATIO 0.8 (1.0-2.7); ALKALINE PHOSPHATASE 66 U/L (46-116); ANION GAP 6 mmol/L (5-15); ASPARTATE AMINO TRANSFERASE 18 U/L (15-37); BILIRUBIN,TOTAL 0.5 MG/DL (0.2-1.0); BLOOD UREA NITROGEN 13 mg/dL (7-18); CALCIUM 9.5 MG/DL (8.5-10.1); CARBON DIOXIDE 29 MMOL/L (21-32); CHLORIDE 96 MMOL/L (98-107); CREATININE 0.8 MG/DL (0.55-1.30); POTASSIUM 3.5 MMOL/L (3.5-5.1); SODIUM 131 MMOL/L (136-145)
[2019-07-17 08:00] VITALS: BP 152/65
[2019-07-17 08:51] VITALS: BP 152/65
[2019-07-17] MEDS: Carvedilol 25mg Tab ORAL SCH (08:51)
[2019-07-17] MEDS: Enoxaparin 40mg Inj SUBQ SCH (08:53)
--- NOTE | 2019-07-17 08:53 | Nephrology Progress Note ---
Assessment/Plan Assessment/Plan: A/P 1. Abdominal pain. - resolved secondary to heavy cocaine abuse. DC today 2. Hypertension secondary to cocaine abuse. Improved DC with Coreg/hydralzaine and Norvasc 3. GI prophylaxis, famotidine. 4. DVT prophylaxis with Lovenox. 5. Leukocytois- viral gastroeneteris, resolved and Na stable at 131 - not UTI. Contaminated collection. DC Abx Subjective Date patient seen: Jul 17, 2019 Time patient seen: 08:49 ROS Limited/Unobtainable: No Allergies: Coded Allergies: No Known Allergies (Unverified , 04/10/14) Subjective Patient feeling better. BP much improved Objective Last 24 Hour Vital Signs Date Time Temp Pulse Resp B/P (MAP) Pulse Ox O2 Delivery O2 Flow Rate FiO2 07/17/19 08:00 98.6 78 18 152/65 (94) 98 07/17/19 05:44 164/79 07/17/19 04:00 98.2 72 18 149/75 (99) 98 07/17/19 04:00 65 07/17/19 00:00 98.6 87 19 159/81 (107) 97 07/17/19 00:00 78 07/16/19 21:59 174/85 07/16/19 21:58 75 174/85 07/16/19 21:00 Room Air 07/16/19 20:00 71 07/16/19 20:00 98.7 75 18 174/85 (114) 99 07/16/19 17:24 71 168/83 07/16/19 16:33 74 07/16/19 16:00 74 07/16/19 16:00 98.0 71 21 168/83 (111) 100 07/16/19 15:34 85 176/80 07/16/19 13:21 159/85 07/16/19 12:00 98.1 79 20 159/85 (109) 98 07/16/19 12:00 75 07/16/19 09:18 78 173/85 07/16/19 09:00 Room Air Intake and Output 07/16/19 07/17/19 19:00 07:00 Intake Total 240 ml Balance 240 ml Intake Oral 240 ml # Voids 2 2 Laboratory Tests 07/17/19 06:08: White Blood Count 7.9, Red Blood Count 5.45H, Hemoglobin 17.2H, Hematocrit 51.6H , Mean Corpuscular Volume 95, Mean Corpuscular Hemoglobin 31.5H, Mean Corpuscular Hemoglobin Concent 33.3, Red Cell Distribution Width 11.6, Platelet Count 268, Mean Platelet Volume 8.4, Neutrophils (%) (Auto) 70.5, Lymphocytes (% ) (Auto) 18.7L, Monocytes (%) (Auto) 8.9, Eosinophils (%) (Auto) 0.3, Basophils (%) (Auto) 1.6, Sodium Level 131L, Potassium Level 3.5, Chloride Level 96L, Carbon Dioxide Level 29, Anion Gap 6, Blood Urea Nitrogen 13, Creatinine 0.8, Estimat Glomerular Filtration Rate > 60, Glucose Level 113H, Calcium Level 9.5, Total Bilirubin 0.5, Aspartate Amino Transf (AST/SGOT) 18, Alanine Aminotransferase (ALT/SGPT) 14, Alkaline Phosphatase 66, Total Protein 7.1, Albumin 3.1L, Globulin 4.0, Albumin/Globulin Ratio 0.8L Height (Feet): 5 Height (Inches): 4.00 Weight (Pounds): 146 General Appearance: no apparent distress, alert EENT: normal ENT inspection Neck: normal alignment Cardiovascular: normal rate, regular rhythm Respiratory/Chest: lungs clear, normal breath sounds Abdomen: non tender, soft Edema: no edema noted Arm (L), no edema noted Arm (R), no edema noted Leg (L), no edema noted Leg (R), no edema noted Pedal (L), no edema noted Pedal (R), no edema noted Generalized Caleb Whitt MD Jul 17, 2019 08:53
--- NOTE | 2019-07-17 17:25 | Surgery Progress Note ---
Surgery Progress Note Subjective Symptoms: improved, pain absent, tolerating diet, voiding well, passing flatus , BM Additional Comments wbc resolved improved Objective Last 24 Hour Vital Signs Date Time Temp Pulse Resp B/P (MAP) Pulse Ox O2 Delivery O2 Flow Rate FiO2 07/17/19 09:00 Room Air 07/17/19 08:51 78 152/65 07/17/19 08:51 78 152/65 07/17/19 08:00 82 07/17/19 08:00 98.6 78 18 152/65 (94) 98 07/17/19 05:44 164/79 07/17/19 04:00 98.2 72 18 149/75 (99) 98 07/17/19 04:00 65 07/17/19 00:00 98.6 87 19 159/81 (107) 97 07/17/19 00:00 78 07/16/19 21:59 174/85 07/16/19 21:58 75 174/85 07/16/19 21:00 Room Air 07/16/19 20:00 71 07/16/19 20:00 98.7 75 18 174/85 (114) 99 I&O Intake and Output 07/16/19 07/17/19 19:00 07:00 Intake Total 240 ml Balance 240 ml Intake Oral 240 ml # Voids 2 2 Cardiovascular: RSR Respiratory: clear Abdomen: soft, flat, non-tender, present bowel sounds Extremities: no edema, no tenderness, no cyanosis Laboratory Tests Test 07/17/19 06:08 White Blood Count 7.9 K/UL (4.8-10.8) Red Blood Count 5.45 M/UL (4.20-5.40) H Hemoglobin 17.2 G/DL (12.0-16.0) H Hematocrit 51.6 % (37.0-47.0) H Mean Corpuscular Volume 95 FL (80-99) Mean Corpuscular Hemoglobin 31.5 PG (27.0-31.0) H Mean Corpuscular Hemoglobin Concent 33.3 G/DL (32.0-36.0) Red Cell Distribution Width 11.6 % (11.6-14.8) Platelet Count 268 K/UL (150-450) Mean Platelet Volume 8.4 FL (6.5-10.1) Neutrophils (%) (Auto) 70.5 % (45.0-75.0) Lymphocytes (%) (Auto) 18.7 % (20.0-45.0) L Monocytes (%) (Auto) 8.9 % (1.0-10.0) Eosinophils (%) (Auto) 0.3 % (0.0-3.0) Basophils (%) (Auto) 1.6 % (0.0-2.0) Sodium Level 131 MMOL/L (136-145) L Potassium Level 3.5 MMOL/L (3.5-5.1) Chloride Level 96 MMOL/L (98-107) L Carbon Dioxide Level 29 MMOL/L (21-32) Anion Gap 6 mmol/L (5-15) Blood Urea Nitrogen 13 mg/dL (7-18) Creatinine 0.8 MG/DL (0.55-1.30) Estimat Glomerular Filtration Rate > 60 mL/min (>60) Glucose Level 113 MG/DL (74-106) H Calcium Level 9.5 MG/DL (8.5-10.1) Total Bilirubin 0.5 MG/DL (0.2-1.0) Aspartate Amino Transf (AST/SGOT) 18 U/L (15-37) Alanine Aminotransferase (ALT/SGPT) 14 U/L (12-78) Alkaline Phosphatase 66 U/L (46-116) Total Protein 7.1 G/DL (6.4-8.2) Albumin 3.1 G/DL (3.4-5.0) L Globulin 4.0 g/dL Albumin/Globulin Ratio 0.8 (1.0-2.7) L Plan Problems: (1) Dehydration (2) Polycythemia (3) Cocaine abuse (4) Urinary tract infection (5) Intractable vomiting (6) Abdominal pain Assessment & Plan: CT with Findings: There is a lipoma in the posterolateral right flank measuring 4.2 x 8.2 cm. This has not changed subsequently since the last study. There is gallbladder wall thickening noted on this exam. This was also seen previously. There are bilateral renal cysts. There is no hydronephrosis. Aortoiliac calcifications are present. No evidence of appendicitis, free fluid, bowel obstruction. There are enhancing foci within the uterus likely fibroids. Degenerative changes of the lower lumbar spine are noted with vacuum phenomenon and osteophytes. The lung bases are showing a few cystic lesions which may be small pneumatoceles. There is mild posterior basal atelectasis. Hiatal hernia noted IMPRESSION: Gallbladder wall thickening nonspecific. Subcutaneous lipoma in the right posterolateral abdominal wall. pain resolved no n/v/f/c currently labs noted okay for diet no acute surgical intervention planned trend labs d/c oral abx outpt pcp f/u will follow with recs thank you (7) Gastroenteritis Adolfo Medrano Jul 17, 2019 17:25
--- NOTE | 2019-07-18 15:18 | Discharge Summary ---
Discharge Summary Discharge Summary _ DATE OF ADMISSION: 07/14/2019 DATE OF DISCHARGE: 07/17/2019 DISCHARGED BY: Dr. Whitt REASON FOR ADMISSION: 63 years old female with past medical history of hypertension , presented to emergency department with nausea , vomiting ,and abdominal pain. Patient was unable to keep anything down. She felt dehydrated. She had bowel movements , which was normal. She denied dysuria. No chest pain or shortness of breath. Patient felt weak when standing. Upon evaluation patient was tachycardic , blood pressure was severely elevated 203/104 . Urine toxicology screen was positive for cocaine . Urinalysis revealed pyuria ,few bacteria ,+2 leukocyte esterase ,+3 protein, +1 glucose, +2 blood. Chemistry demonstrated lactic acid 2.1 . troponin negative. Stable electrolytes and renal parameters . Glucose 176. Mild leukocytosis WBC 12, hemoglobin 17.2 ,hematocrit 52.4. Stable coagulation profile. Chest x-ray demonstrated upper lobe emphysema, right worse than left; elevated left hemidiaphragm and osteopenia. CT of the abdomen and pelvis demonstrated gallbladder wall thickening. Subcutaneous lipoma in the right posterior lateral abdominal wall. Degenerative changes of the spine. In emergency department patient started on the IV fluids,received morphine and Zofran. Patient started on empiric antibiotic for possible UTI. Patient subsequently admitted to telemetry floor for further management. CONSULTANTS: GI specialist Dr. Espino surgery Dr. Medrano [facility] COURSE: Patient admitted to telemetry floor. Pain management was addressed. Hypertensive urgency was most likely secondary to heavy cocaine abuse. Patient was monitored on telemetry , Antihypertensive medication regimen was optimized. DVT and GI prophylaxis provided. Per GI specialist, acute nausea ,vomiting ,and diarrhea with mild leukocytosis were most probably due to viral gastroenteritis. Symptomatic care provided. Diet was slowly advanced as tolerated . Surgeon followed. CT scan was personally reviewed by the surgeon. Patient was clinically improving with symptomatic care. Patient was able to tolerate diet. No acute surgical intervention was necessary. Oral antibiotic continued. Surgeon recommended outpatient follow-up with primary care provider. Leukocytosis resolved, it was likely due to viral gastroenteritis, patient remained afebrile. Urine was contaminated. Antibiotic stopped. Blood pressure was managed with calcium channel letha and hydralazine. DVT and GI prophylaxis provided. Blood pressure stabilized ; prior to discharge 152/65. Supplemental oxygen provided as needed to keep pulse oximetry above 90%. Renal parameters and electrolytes were closely monitored. Electrolytes corrected as needed , and nephrotoxics were avoided. sprinkler worker met with patient. Patient was referred to contacted provider [facility]. Patient will need to schedule her own appointment. Patient was not receptive to substance abuse resources. Patient clinically stabilized and was ready for discharge home. FINAL DIAGNOSES: Acute nausea, vomiting, and diarrhea with mild leukocytosis, most likely due to viral gastroenteritis Hypertension with hypertensive urgency, kijely due to cocaine abuse Dehydration Polycythemia Cocaine abuse DISCHARGE MEDICATIONS: List of medication was provided to patient DISCHARGE INSTRUCTIONS: Patient was discharged home. Follow up with primary care provider in one week. I have been assigned to dictate discharge summary for this account. I was not involved in the patient's management. Pao Lord NP Jul 18, 2019 15:18
== END 2019-07-17 11:15 | disposition home or self-care (01) | DRG 249 ==
LOC: EMR 21:22 → 4E 22:13 → EDBD 22:13 → EDBEDREQ 22:29 → 2E 07-15 10:29
DX: A08.4 Viral intestinal infection, unspecified (principal); I16.0 Hypertensive urgency; F14.10 Cocaine abuse, uncomplicated; E86.0 Dehydration; D75.1 Secondary polycythemia
CPT/HCPCS: 36415; 71045; 74177; 80048; 80053; 80307; 81003; 83605; 83690; 83735; 84484; 85025; 85610; 85730; 93005; 96361; 96365; 96375; 99285; J2405